=== PATIENT | male | born 1980 | race Caucasian/White ===

== ENCOUNTER 2017-10-17 19:16 | Emergency (ER) | payer OTHER ==
--- NOTE | 2017-10-17 19:55 | ER Document Report ---
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 Using the gearshift made it hurt and it is swollen this morning. No history of gout although he is a history of an elevated uric acid. History of arthritis. No fever or chills. No insect bite or sting. Associated Symptoms: None Exacerbated by: Movement Relieved by: Denies Similar symptoms previously: No Recently seen / treated by doctor: No - ROS ROS below otherwise negative: Yes Systems Reviewed and Negative: Yes All other systems reviewed and negative Past Medical History - General Information source: Patient - Social History Smoking Status: Current Every Day Smoker Frequency of alcohol use: None Drug Abuse: None Lives with: Spouse/Significant other Family History: Reviewed & Not Pertinent - Medical History Medical History: Negative Surgical Hx: Negative Vertical Provider Document - CONSTITUTIONAL Agree With Documented VS: Yes Exam Limitations: No Limitations - INFECTION CONTROL TRAVEL OUTSIDE OF THE [place] IN LAST 30 DAYS: No - HEENT HEENT: Normocephalic - NECK Neck: Supple - MUSCULOSKELETAL/EXTREMETIES Musculoskeletal/Extremeties: MAEW, FROM, Tender, Edema - volar right wrist which is warm, 1 cm oval area that is pinker than the rest of the tissue, no skin lesions in wrist or hand. no pain with finger of wrist ROM Notes: 2+ radial pulse, N/V intact distal to the wrist - NEURO Level of Consciousness: Awake, Alert Motor/Sensory: No Motor Deficit, No Sensory Deficit - DERM Integumentary: Warm, Dry Course - Re-evaluation Re-evalutation: 10/17/17 22:44 final xrays negative. per rad - Vital Signs Vital signs: Temp Pulse Resp BP Pulse Ox 97.8 F 85 20 133/85 H 95 10/17/17 19:25 10/17/17 19:25 10/17/17 19:25 10/17/17 19:25 10/17/17 19:25 Procedures - Immobilization Right Wrist Time completed: 21:50 Pre-Proc Neuro Vasc Exam: Normal Immobilizer type: Angel wrap Performed by: PCT Post-Proc Neuro Vasc Exam: Normal Alignment checked and good: Yes Discharge - Discharge Clinical Impression: Right wrist tendinitis Condition: Good Disposition: HOME, SELF-CARE Instructions: Angel Wrap ([facility]), Anti-Inflammatory Medication ([facility]), Sling to be Used ([facility]), Tendonitis ([facility]) Additional Instructions: Preliminary x-ray is negative Call me tomorrow after 9 AM at [phone] for the final x-ray report Angel wrap for comfort Elevate above your heart Sling Follow-up with your primary care doctor Return to the emergency room if symptoms worsen this weekend Prescriptions: Ibuprofen [Motrin 800 mg Tablet] 800 mg PO Q8HP PRN #30 tablet PRN Reason: Forms: Return to Work Referrals: LINDSEY HERNANDES PA [Primary Care Provider] - Follow up as needed
[2017-10-17] MEDS ORDERED: IBUPROFEN 800 MG TABLET PO ONE (20:18)
[2017-10-17 21:02] VITALS: BP 123/86
--- NOTE | 2017-10-17 21:17 | RADIOLOGY REPORT (SQ) ---
EXAM DESCRIPTION: HAND RIGHT 3 VIEWS; WRIST RIGHT 3 VIEWS COMPLETED DATE/TIME: 10/17/2017 8:30 pm REASON FOR STUDY: pain and swelling COMPARISON: None. FINDINGS: Three views right wrist: No bone, joint or soft tissue abnormality. Normal carpal alignm ent. Three views right hand: Old healed 5th metacarpal fracture with resultant foreshortening and mild an gular deformity. No acute fracture. Soft tissues normal. IMPRESSION: No radiographic evidence of acute abnormality of the right wrist or hand. TECHNICAL DOCUMENTATION: JOB ID: [id number] Reading location - IP/workstation name: [email or web address]
--- NOTE | 2017-10-17 21:17 | RADIOLOGY REPORT (SQ) ---
EXAM DESCRIPTION: HAND RIGHT 3 VIEWS; WRIST RIGHT 3 VIEWS COMPLETED DATE/TIME: 10/17/2017 8:30 pm REASON FOR STUDY: pain and swelling COMPARISON: None. FINDINGS: Three views right wrist: No bone, joint or soft tissue abnormality. Normal carpal alignm ent. Three views right hand: Old healed 5th metacarpal fracture with resultant foreshortening and mild an gular deformity. No acute fracture. Soft tissues normal. IMPRESSION: No radiographic evidence of acute abnormality of the right wrist or hand. TECHNICAL DOCUMENTATION: JOB ID: [id number] Reading location - IP/workstation name: [email or web address]
== END 2017-10-17 20:57 | disposition home or self-care (01) ==
LOC: ER 19:16
DX: M77.9 Enthesopathy, unspecified (principal); M25.531 Pain in right wrist; M25.549 Pain in joints of unspecified hand; F17.200 Nicotine dependence, unspecified, uncomplicated
CPT/HCPCS: 99283

== ENCOUNTER 2017-12-21 22:44 | Emergency (ER) | payer OTHER ==
--- NOTE | 2017-12-22 01:27 | ER Document Report ---
ED Medical Screen (RME) - General Chief Complaint: Weakness Stated Complaint: FATIGUED Time Seen by Provider: 12/22/17 01:24 Mode of Arrival: Ambulatory Information source: Patient Notes: Patient is a 37-year-old male who presents with chief complaint of nausea, shortness of breath and fatigue that started at 8 PM tonight while he was at work. Patient reports he feels very winded with any amount of movement and feels extremely tired. Patient reports that he feels excessively thirsty. Patient reports that he is a borderline diabetic however he has not had any blood sugars done in many years. Patient denies any history of similar symptoms. Denies any pain. Patient's primary care provider is David Melara. Patient reports past medical history of low testosterone, hypertension, constipation, GERD, hyperlipidemia and a right bundle branch block. Exam: Lung sounds clear to auscultation bilaterally. Patient alert, oriented and able to speak in full sentences, ambulates with a steady gait. I have greeted and performed a rapid initial assessment of this patient. A comprehensive ED assessment and evaluation of the patient, analysis of test results and completion of the medical decision making process will be conducted by additional ED providers. Dictation of this chart was performed using voice recognition software; therefore, there may be some unintended grammatical errors. TRAVEL OUTSIDE OF THE [place] IN LAST 30 DAYS: No - Related Data Allergies/Adverse Reactions: No Known Allergies Allergy (Verified 10/17/17 19:16) Past Medical History - Past Medical History Cardiac Medical History: Reports: Hx Hypertension Renal/ Medical History: Denies: Hx Peritoneal Dialysis Physical Exam - Vital signs Vitals: Temp Pulse Resp BP Pulse Ox 98.0 F 72 16 141/79 H 99 12/21/17 22:50 12/21/17 22:50 12/21/17 22:50 12/21/17 22:50 12/21/17 22:50 Course - Vital Signs Vital signs: Temp Pulse Resp BP Pulse Ox 98.0 F 72 16 141/79 H 99 12/21/17 22:50 12/21/17 22:50 12/21/17 22:50 12/21/17 22:50 12/21/17 22:50 Doctor's Discharge - Discharge Referrals: LINDSEY HERNANDES PA [Primary Care Provider] - Follow up as needed
[2017-12-22 02:05] LABS: ABSOLUTE BASOPHILS # (AUTO) 0.1 10^3/uL (0.0-0.2); ABSOLUTE EOSINOPHILS # (AUTO) 0.3 10^3/uL (0.0-0.6); ABSOLUTE LYMPHOCYTES (AUTO) 2.9 10^3/uL (0.5-4.7); ABSOLUTE MONOCYTES (AUTO) 0.9 10^3/uL (0.1-1.4); ABSOLUTE NEUT (AUTO) 7.1 10^3/uL (1.7-8.2); BASOPHILS % (AUTO) 1.1 % (0-2); EOSINOPHILS % (AUTO) 2.4 % (0-6); HEMATOCRIT 43.3 % (37.9-51.0); HEMOGLOBIN 14.6 g/dL (13.5-17.0); LYMPHOCYTES % (AUTO) 25.9 % (13-45); MEAN CORPUSCULAR HEMOGLOBIN 27.7 pg (27.0-33.4); MEAN CORPUSCULAR HGB CONC 33.8 g/dL (32.0-36.0); MEAN CORPUSCULAR VOLUME 82 fl (80-97); MONOCYTES % (AUTO) 7.8 % (3-13); PLATELET COUNT 227 10^3/uL (150-450); RED BLOOD COUNT 5.29 10^6/uL (4.35-5.55); RED CELL DISTRIBUTION WIDTH 14.3 % (11.5-14.0); SEGMENTED NEUTROPHILS % (AUTO) 62.8 % (42-78); TOTAL CELLS COUNTED % (AUTO) 100 %; WHITE BLOOD COUNT 11.3 10^3/uL (4.0-10.5)
[2017-12-22 02:08] LABS: APPEARANCE,URINE CLEAR; BILIRUBIN,URINE NEGATIVE (NEGATIVE); COLOR,URINE YELLOW; GLUCOSE, URINE NEGATIVE (NEGATIVE); KETONES,URINE NEGATIVE (NEGATIVE); LEUKOCYTE ESTERASE,URINE NEGATIVE (NEGATIVE); NITRITE,URINE NEGATIVE (NEGATIVE); PROTEIN,URINE NEGATIVE (NEGATIVE); URINE SPECIFIC GRAVITY 1.021; UROBILINOGEN,URINE NEGATIVE mg/dL (<2.0)
[2017-12-22 02:23] LABS: ALANINE AMINOTRANSFERASE 36 U/L (21-72); ALBUMIN 4.3 g/dL (3.5-5.0); ALKALINE PHOSPHATASE 86 U/L (38-126); ANION GAP 12 (5-19); ASPARTATE AMINO TRANSFERASE 23 U/L (17-59); BILIRUBIN,DIRECT 0.3 mg/dL (0.0-0.4); BILIRUBIN,TOTAL 0.4 mg/dL (0.2-1.3); BLOOD UREA NITROGEN 12 mg/dL (7-20); CALCIUM 9.6 mg/dL (8.4-10.2); CARBON DIOXIDE 27 mmol/L (22-30); CHLORIDE 105 mmol/L (98-107); GLUCOSE 90 mg/dL (75-110); POTASSIUM 4.4 mmol/L (3.6-5.0); SODIUM 144.3 mmol/L (137-145); TOTAL PROTEIN 7.4 g/dL (6.3-8.2)
--- NOTE | 2017-12-22 02:31 | ER Document Report ---
ED General - General Chief Complaint: Weakness Stated Complaint: FATIGUED Time Seen by Provider: 12/22/17 01:24 Mode of Arrival: Ambulatory Notes: Patient is a 37-year-old male who presents with complaint of fatigue. This is been ongoing for last 18 or so hours. He is a clamp truck driver. He does admit that he is in the heat a lot and that his truck's air condition does not work well. Denies any chest pain. He says that when he gets up and walks he does feel a bit short of breath. He says overall just feels very fatigued at times feels little bit dizzy. No headache. No focal weakness or numbness. No abdominal pain. Some nausea but no vomiting. No recent fevers. No recent changes in his medications. He does have a history of left bundle branch block but no history of coronary disease. No history of PE or DVT. TRAVEL OUTSIDE OF THE [place] IN LAST 30 DAYS: No - Related Data Allergies/Adverse Reactions: No Known Allergies Allergy (Verified 10/17/17 19:16) Past Medical History - General Information source: Patient - Social History Smoking Status: Never Smoker Frequency of alcohol use: None Drug Abuse: None Family History: Reviewed & Not Pertinent - Past Medical History Cardiac Medical History: Reports: Hx Hypertension Renal/ Medical History: Denies: Hx Peritoneal Dialysis Review of Systems - Review of Systems Notes: My Normal Review Basic REVIEW OF SYSTEMS: CONSTITUTIONAL : Denies fever, chills, or sweats. Denies recent illness. Fatigue EENT: Denies eye, ear, throat, or mouth pain or symptoms. Denies nasal or sinus congestion. Vascular: No chest pain RESPIRATORY: Some shortness of breath with exertion. GASTROINTESTINAL: Denies abdominal pain. Denies nausea, vomiting, or diarrhea. MUSCULOSKELETAL: Denies neck or back pain or joint pain or swelling. SKIN: Denies rash or skin lesions. NEUROLOGICAL: Denies altered mental status or loss of consciousness. Some dizziness. Denies headache. Denies weakness or paralysis or loss of use of either side. Denies problems with gait or speech. Denies sensory or motor loss. ALL OTHER SYSTEMS REVIEWED AND NEGATIVE. Physical Exam - Vital signs Vitals: Temp Pulse Resp BP Pulse Ox 98.0 F 72 16 141/79 H 99 12/21/17 22:50 12/21/17 22:50 12/21/17 22:50 12/21/17 22:50 12/21/17 22:50 - Notes Notes: General Appearance: Well nourished, alert, cooperative, no acute distress, no obvious discomfort. Vitals: reviewed, See vital signs table. Head: no swelling or tenderness to the head Eyes: PERRL, EOMI, Conjuctiva clear Mouth: No decreasd moisture Throat: No tonsillar inflammation, No airway obstruction, No lymphadenopathy Neck: Supple, no neck tenderness, No thyromegaly Lungs: No wheezing, No rales, No rhonci, No accessory muscle use, good air exchange bilaterally. Heart: Normal rate, Regular rythm, No murmur, no rub Abdomen: Normal BS, soft, No rigidity, No abdominal tenderness, No guarding, no rebound, no abdominal masses, no organomegaly Extremities: strength 5/5 in all extremities, good pulses in all extremities, no swelling or tenderness in the extremities, face bilateral lower extremity edema. Skin: warm, dry, appropriate color, no rash Neuro: speech clear, oriented x 3, normal affect, responds appropriately to questions. Cranial nerves II through XII are intact. Distal sensation intact. Patient will move all 4 extremities without difficulty. Course - Re-evaluation Re-evalutation: 12/22/17 02:31 EKG is reviewed and interpreted by me. EKG shows sinus rhythm with a rate of 59 bpm. Patient has a left bundle branch block with expected ST segment changes. GA interval is prolonged. QRS duration is prolonged. QTc interval is within normal range. No old EKG available for comparison. 12/22/17 06:17 The exact cause of the patient's fatigue is unclear. He is feeling some better after receiving IV fluids. I suspect this most likely is heat exhaustion. D- dimer is negative. Obtain a d-dimer due to his history of being a clamp truck driver and feel a bit short of breath. His troponin is negative. He has no chest pain. His EKG is normal. He looks well on exam. Is no focal neurologic deficits. I feel is safe to be discharged home. I will give him a day off and encouraged him to drink non-caffeinated liquids and the rest. I encouraged him follow-up closely with his primary care doctor this week. I encourage him return to ER if he has worsening of symptoms or has any chest pain. Patient agrees with plan will be discharged home. Dictation of this chart was performed using voice recognition software; therefore, there may be some unintended grammatical errors. - Vital Signs Vital signs: Temp Pulse Resp BP Pulse Ox 98.4 F 69 16 119/71 99 12/22/17 05:28 12/22/17 05:28 12/21/17 22:50 12/22/17 05:28 12/22/17 05:28 - Laboratory Result Diagrams: 12/22/17 01:40 12/22/17 01:40 Laboratory results interpreted by me: 12/22/17 01:40 WBC 11.3 H RDW 14.3 H Discharge - Discharge Clinical Impression: Exertional dyspnea Fatigue Qualifiers: Fatigue type: unspecified Qualified Code(s): R53.83 - Other fatigue Condition: Good Disposition: HOME, SELF-CARE Additional Instructions: Please rest over the next 24 hours and stay in the air conditioning and drink lots of non-caffeinated liquids. Please follow up closely with your doctor this week for reevaluaiton. Return to the ER immediately if you have any chest pain, difficulty breathing, worsening weakness, or feel that you are worsening in any way. Forms: Return to Work Referrals: LINDSEY HERNANDES PA [Primary Care Provider] - Follow up as needed
[2017-12-22] MEDS ORDERED: RINGERS SOLUTION,LACTATED 1,000 ML IV ONE (02:42)
[2017-12-22 03:26] LABS: FREE T4 (FREE THYROXINE) 0.93 ng/dL (0.78-2.19)
[2017-12-22 03:40] LABS: THYROID STIMULATING HORMONE 2.5 uIU/mL (0.47-4.68)
--- NOTE | 2017-12-22 04:23 | RADIOLOGY REPORT (SQ) ---
EXAM DESCRIPTION: XR CHEST 2 VIEWS COMPLETED DATE/TME: 12/22/2017 01:24 CLINICAL HISTORY: 37 years Male, shortness of breath/dyspnea COMPARISON: None. FINDINGS: Adequate lung volume, clear parenchyma, normal cardiac silhouette, and grossly intact bony thorax. IMPRESSION: No acute cardiopulmonary findings.
[2017-12-22 05:38] VITALS: BP 119/71
--- NOTE | 2017-12-22 07:45 | EKG REPORT ---
SEVERITY:- ABNORMAL ECG - SINUS RHYTHM FIRST DEGREE AV BLOCK LEFT BUNDLE BRANCH BLOCK : Confirmed by: Chris Flores MD 22-Dec-2017 07:45:02
== END 2017-12-22 05:33 | disposition home or self-care (01) ==
LOC: ER 22:44
DX: R53.83 Other fatigue (principal); R06.09 Other forms of dyspnea; R06.02 Shortness of breath; R42 Dizziness and giddiness; R11.0 Nausea; I44.7 Left bundle-branch block, unspecified; I10 Essential (primary) hypertension
CPT/HCPCS: 93005; 99285; 96360; 96361; 36415; 84439; 84443; 85025; 80053; 81001; 84484; 85379; 71046; 93010; J7120

== ENCOUNTER → 2018-07-07 | Outpatient (CLI) | payer OTHER ==
--- NOTE | 2018-07-08 09:09 | RADIOLOGY REPORT (SQ) ---
EXAM DESCRIPTION: MRI HEAD COMBO COMPLETED DATE/TIME: 07/07/2018 8:05 pm REASON FOR STUDY: R42 DIZZINESS AND GIDDINESS R56.9 UNSPECIFIED CONVULSIONS R42 DIZZINESS AND GIDDI NESS R56.9 UNSPECIFIED CONVULSIONS COMPARISON: None. TECHNIQUE: Multiplanar imaging includes noncontrasted T1, T2, FLAIR, diffusion with ADC map and post gadolinium contrast T1 sequences. Images stored on PACS. CONTRAST TYPE AND DOSE: 20 mL Dotarem. RENAL FUNCTION: None required. The patient is less than 50 years old. LIMITATIONS: None. FINDINGS: ANATOMY: No anomalies. Normal vascular flow voids. Pituitary fossa normal. CSF SPACES: Normal in size and contour. No hemorrhage. CEREBRUM: Sulci and gyri normal in size and contour. Normal white matter signal on FLAIR imaging. No evidence of hemorrhage, mass, or extraaxial fluid collection. No abnormal enhancement post contrast. POSTERIOR FOSSA: No signal alteration. No hemorrhage. No edema, masses, or mass effect. Internal vivi tory canals, cerebellopontine angles, mastoids normal. No enhancing lesions. No abnormal enhancement post contrast. DIFFUSION IMAGING: Negative for acute or subacute infarction. ORBITS: No masses. Globes normal. PARANASAL SINUSES: No fluid levels. Mucosa normal. OTHER: No other significant finding. IMPRESSION: NORMAL MRI OF THE BRAIN WITHOUT AND WITH INTRAVENOUS GADOLINIUM CONTRAST. EVIDENCE OF ACUTE STROKE: NO. TECHNICAL DOCUMENTATION: JOB ID: [id number] [employer]- All Rights Reserved Reading location - IP/workstation name: [email or web address]
== END ==
LOC: RAD 19:34
PROVIDERS: ATTEND Specialist
DX: R42 Dizziness and giddiness (principal); R56.9 Unspecified convulsions
CPT/HCPCS: 82565; 70553; A9576

== ENCOUNTER → 2018-11-18 | Outpatient (CLI) | payer MEDICAID ==
--- NOTE | 2018-11-18 15:18 | RADIOLOGY REPORT (SQ) ---
EXAM DESCRIPTION: MRI CERVICAL SPINE WITHOUT COMPLETED DATE/TIME: 11/18/2018 2:08 pm REASON FOR STUDY: M54.12 RADICULOPATHY, CERVICAL REGION M54.12 RADICULOPATHY, CERVICAL REGION COMPARISON: None. TECHNIQUE: Sagittal and Axial imaging includes T1, T2, STIR and gradient echo sequences. LIMITATIONS: Large body habitus. Body coil had to be utilized. FINDINGS: ALIGNMENT: There is very slight reversal of the normal cervical lordosis. This could be p ositional. VERTEBRAE: Intact. BONE MARROW: Normal. No marrow replacement or reactive changes. DISCS: There is some loss of normal water signal throughout the cervical spine consistent with desicc ation. This is most prominent from the C2-3 level there is C5-C6. HARDWARE: None in the spine. CORD AND BASE OF BRAIN: Normal in size and signal intensity. SOFT TISSUES: No soft tissue masses. C1-C2: No significant spinal stenosis. C2-C3: No significant spinal stenosis or exit foraminal stenosis. C3-C4: No significant spinal stenosis or exit foraminal stenosis. C4-C5: No significant spinal stenosis or exit foraminal stenosis. C5-C6: No significant spinal stenosis or exit foraminal stenosis. C6-C7: No significant spinal stenosis or exit foraminal stenosis. C7-T1: No significant spinal stenosis or exit foraminal stenosis. UPPER THORACIC: Incompletely imaged. No significant spinal stenosis or exit foraminal stenosis. OTHER: No other significant finding. IMPRESSION: Mild disc degenerative disease with loss of normal water signal as described. No high-g rade central stenosis or nerve root impingement. TECHNICAL DOCUMENTATION: JOB ID: [id number] [employer]- All Rights Reserved Reading location - IP/workstation name: [email or web address]
== END ==
LOC: RAD 13:19
PROVIDERS: ATTEND Family Medicine
DX: M54.12 Radiculopathy, cervical region (principal); M50.322 Other cervical disc degeneration at C5-C6 level
CPT/HCPCS: 72141

== ENCOUNTER → 2019-02-25 | Outpatient (CLI) | payer MEDICAID ==
--- NOTE | 2019-02-25 16:51 | RADIOLOGY REPORT (SQ) ---
EXAM DESCRIPTION: MRI LUMBAR SPINE WITHOUT COMPLETED DATE/TIME: 02/25/2019 4:42 pm REASON FOR STUDY: M54.5 LOW BACK PAIN M54.5 LOW BACK PAIN COMPARISON: None. TECHNIQUE: Sagittal and Axial imaging includes T1, T2, STIR and gradient echo sequences. Coronal T2/ HASTE imaging. LIMITATIONS: None. FINDINGS: VISUALIZED UPPER ABDOMEN: Limited evaluation. No acute or suspicious findings suggested. SEGMENTATION: No transitional anatomy. The lowest well-developed disc space is labeled L5-S1. ALIGNMENT: Anatomic. VERTEBRAE: Intact. BONE MARROW: Normal. No marrow replacement or reactive changes. DISC SIGNAL: Normal. No significant abnormal signal or loss of height. POSTERIOR ELEMENTS: Generally intact. No pars defect evident. HARDWARE: None in the spine. CORD AND CONUS: Normal in size and signal intensity. Conus at the appropriate level. SOFT TISSUES: No aortic aneurysm seen. No bulky retroperitoneal adenopathy or mass. No paraspinal mas s or fluid. L1-L2: No significant spinal stenosis or exit foraminal stenosis. L2-L3: No significant spinal stenosis or exit foraminal stenosis. L3-L4: No significant spinal stenosis or exit foraminal stenosis. L4-L5: No significant spinal stenosis or exit foraminal stenosis. L5-S1: Small focal area of increased signal in the posterior annulus. No disc bulge. No significant spinal stenosis or exit foraminal stenosis. LOWER THORACIC: Incompletely imaged. No stenosis seen. SACRUM: Visualized upper sacrum intact. OTHER: No other significant findings. IMPRESSION: SMALL FOCAL AREA OF INCREASED SIGNAL IN THE POSTERIOR ANNULUS OF THE L5-S1 DISC, PROBABL Y A SMALL ANNULAR FISSURE. OTHERWISE UNREMARKABLE MRI LUMBAR SPINE. NO DISC BULGE, STENOSIS, OR IMP INGEMENT. TECHNICAL DOCUMENTATION: JOB ID: [id number]- All Rights Reserved Reading location - IP/workstation name: [email or web address]-
== END ==
LOC: RAD 15:56
PROVIDERS: ATTEND Anesthesiology Pain Medicine
DX: M54.5 Low back pain (principal)
CPT/HCPCS: 72148

== ENCOUNTER 2019-05-01 16:42 | Emergency (ER) | payer MEDICAID ==
[2019-05-01] MEDS ORDERED: ASPIRIN 81 MG TABLET, CHEWABLE PO ONE (17:22)
[2019-05-01] MEDS ORDERED: IPRATROPIUM/ALBUTEROL 0.5-2.5 MG/3 ML AMPUL NEB ONE (17:23)
--- NOTE | 2019-05-01 17:24 | ER Document Report ---
ED Medical Screen (RME) - General Chief Complaint: Shortness Of Breath Stated Complaint: SHORTNESS OF BREATH/COUGH/CHEST TIGHTNESS Time Seen by Provider: 05/01/19 17:09 Primary Care Provider: HELIO ODONNELL MD [Primary Care Provider] - Follow up as needed Notes: Patient presents complaint of cough for the past month with sore throat and headache. Patient denies any nausea. Patient is here with family members with upper respiratory symptoms. Patient states he developed chest pain and shortness of breath today which prompted his visit. I have greeted and performed a rapid initial assessment of this patient. A comprehensive ED assessment and evaluation of the patient, analysis of test results and completion of the medical decision making process will be conducted by additional ED providers. TRAVEL OUTSIDE OF THE [place] IN LAST 30 DAYS: No - Related Data Allergies/Adverse Reactions: No Known Allergies Allergy (Verified 10/17/17 19:16) Home Medications: asa. atoravistatin. stool softener. losartin. claritin. hydrochlorothizide. protonix. vit d Past Medical History - Social History Chew tobacco use (# tins/day): No Frequency of alcohol use: Occasional Drug Abuse: None - Past Medical History Cardiac Medical History: Reports: Hx Hypercholesterolemia, Hx Hypertension Renal/ Medical History: Denies: Hx Peritoneal Dialysis Past Surgical History: Reports: Hx Appendectomy, Hx Tonsillectomy Physical Exam - Vital signs Vitals: Temp Resp Pulse Ox 98.3 F 20 96 05/01/19 16:42 05/01/19 16:42 05/01/19 16:42 - Respiratory Respiratory status: No respiratory distress Chest status: Tender, Pain with cough Breath sounds: Nonproductive cough Course - Vital Signs Vital signs: Temp Pulse Resp BP Pulse Ox 98.3 F 84 20 133/61 H 96 05/01/19 16:48 05/01/19 16:48 05/01/19 16:48 05/01/19 16:48 05/01/19 16:48 Doctor's Discharge - Discharge Referrals: HELIO ODONNELL MD [Primary Care Provider] - Follow up as needed
--- NOTE | 2019-05-01 17:38 | ER Document Report ---
ED General - General Chief Complaint: Shortness Of Breath Stated Complaint: SHORTNESS OF BREATH/COUGH/CHEST TIGHTNESS Time Seen by Provider: 05/01/19 17:09 Primary Care Provider: HELIO ODONNELL MD [NO LOCAL MD] - Follow up as needed TRAVEL OUTSIDE OF THE [place] IN LAST 30 DAYS: No - HPI Notes: 38-year-old male to the emergency department with complaints of shortness of breath, cough, chest pain. He has had a cough for the past 4 weeks. He also states that he began to develop a sore throat over the past several days. He states that he is beginning to feel like he is short of breath when he coughs and he has a lot of tightness across the anterior portion of his chest. He denies any leg swelling, exertional chest pain, nausea, vomiting, diaphoresis. He does have a history of high blood pressure but he is not diabetic. He denies any history of hyperlipidemia. He is not a smoker. There is no known history of coronary artery disease in his family. He states that his chest hurts more with coughing and big deep breath. - Related Data Allergies/Adverse Reactions: No Known Allergies Allergy (Verified 10/17/17 19:16) Home Medications: asa. atoravistatin. stool softener. losartin. claritin. hydrochlorothizide. protonix. vit d Past Medical History - General Information source: Patient - Social History Smoking Status: Former Smoker Chew tobacco use (# tins/day): No Frequency of alcohol use: Occasional Drug Abuse: None Lives with: Family Family History: Reviewed & Not Pertinent Patient has suicidal ideation: No Patient has homicidal ideation: No - Past Medical History Cardiac Medical History: Reports: Hx Hypercholesterolemia, Hx Hypertension Renal/ Medical History: Denies: Hx Peritoneal Dialysis Past Surgical History: Reports: Hx Appendectomy, Hx Tonsillectomy Review of Systems - Review of Systems Constitutional: Chills, Fever - Subjective fevers EENT: Throat pain Cardiovascular: See HPI, Chest pain. denies: Palpitations, Heart racing, Syncope, Dizziness, Lightheaded Respiratory: Cough, Short of breath Gastrointestinal: denies: Abdominal pain, Diarrhea, Nausea, Vomiting Genitourinary: No symptoms reported Male Genitourinary: No symptoms reported Musculoskeletal: No symptoms reported Skin: No symptoms reported Hematologic/Lymphatic: No symptoms reported Neurological/Psychological: No symptoms reported -: Yes All other systems reviewed and negative Physical Exam - Vital signs Vitals: Temp Resp Pulse Ox 98.3 F 20 96 05/01/19 16:42 05/01/19 16:42 05/01/19 16:42 Selected Entries 05/01/19 16:48 Temperature 98.3 F Pulse Rate 84 Respiratory 20 Rate Blood Pressure 133/61 H Blood Pressure 85 Mean O2 Sat by Pulse 96 Oximetry Interpretation: Normal - General General appearance: Appears well, Alert In distress: None - HEENT Head: Normocephalic, Atraumatic Eyes: Normal Pupils: PERRL Ears: Normal External canal: Normal Tympanic membrane: Normal Sinus: Normal Nasal: Normal Mouth/Lips: Normal Pharynx: Normal. No: Potential airway comprom. Neck: Normal, Supple. No: Lymphadenopathy, Meningismus - Respiratory Respiratory status: No respiratory distress Chest status: Nontender Breath sounds: Decreased air movement. No: Productive cough, Rales, Rhonchi, Stridor, Wheezing Chest palpation: Normal - Cardiovascular Rhythm: Regular Heart sounds: Normal auscultation Murmur: No - Abdominal Inspection: Morbidly Obese Distension: No distension Bowel sounds: Normal Tenderness: No: Tender, McBurney's point, Winston's sign, Guarding, Rebound Organomegaly: No organomegaly - Back Back: Normal, Nontender. No: CVA tenderness - Neurological Neuro grossly intact: Yes Cognition: Normal Orientation: AAOx4 Nikky Coma Scale Eye Opening: Spontaneous Nikky Coma Scale Verbal: Oriented Nikky Coma Scale Motor: Obeys Commands Nikky Coma Scale Total: 15 Speech: Normal Cranial nerves: Normal Cerebellar coordination: Normal Motor strength normal: LUE, RUE, LLE, RLE Additional motor exam normals: Equal fresh food manager. No: Pronator drift Sensory: Normal - Psychological Associated symptoms: Normal affect, Normal mood - Skin Skin Temperature: Warm Skin Moisture: Dry Skin Color: Normal Course - Re-evaluation Re-evalutation: 05/01/19 19:23 Patient feeling much better after breathing treatment. States "I am feeling much more like my old self". Offered second breathing treatment, but patient declined. Likely this is a bronchitis that is lingering. Will send home with tessalon, albuterol inhaler, and steroid dose dillon. Patient agrees with the plan. Impression: Bronchitis. CXR negative for PNA. Labs are reassuring. EKG unchanged from prior. Has musculoskeletal chest pain from coughing. Will discharge home. Patient agrees with the plan. - Vital Signs Vital signs: Temp Pulse Resp BP Pulse Ox 98.3 F 84 18 146/88 H 96 05/01/19 16:48 05/01/19 16:48 05/01/19 18:14 05/01/19 18:14 05/01/19 18:14 - Laboratory Result Diagrams: 05/01/19 17:54 05/01/19 17:54 Laboratory results interpreted by me: 05/01/19 17:54 RDW 14.2 H - Diagnostic Test Radiology reviewed: Image reviewed, Reports reviewed - EKG Interpretation by Me EKG shows normal: Sinus rhythm Rate: Normal Whitney/QRS: LBBB When compared to previous EKG there are: No significant change Additional EKG results interpreted by me: 05/01/19 19:27 NO STEMI, + LBBB that is unchanged from prior on 12/22/2017. Discharge - Discharge Clinical Impression: Bronchitis, Musculoskeletal chest pain Condition: Stable Disposition: HOME, SELF-CARE Instructions: Bronchitis ([facility]), Chest Wall Pain ([facility]) Additional Instructions: PUSH FLUIDS. TAKE MEDICINES PRESCRIBED. RETURN IF WORSE. Prescriptions: Benzonatate [Tessalon Perle 100 mg Capsule] 100 mg PO Q8HP PRN #40 cap PRN Reason: Albuterol Sulfate [Albuterol Sulfate Hfa] 2 puff IH Q4H #1 hfa.aer.ad Prednisone [Deltasone 10 mg Tablet] 10 mg PO ASDIR PRN #21 tablet PRN Reason: Referrals: HELIO ODONNELL MD [NO LOCAL MD] - Follow up in 3-5 days
[2019-05-01 18:16] LABS: ABSOLUTE BASOPHILS # (AUTO) 0.1 10^3/uL (0.0-0.2); ABSOLUTE EOSINOPHILS # (AUTO) 0.3 10^3/uL (0.0-0.6); ABSOLUTE LYMPHOCYTES (AUTO) 1.9 10^3/uL (0.5-4.7); ABSOLUTE MONOCYTES (AUTO) 0.8 10^3/uL (0.1-1.4); BASOPHILS % (AUTO) 0.9 % (0-2); EOSINOPHILS % (AUTO) 2.8 % (0-6); HEMATOCRIT 43.5 % (37.9-51.0); HEMOGLOBIN 14.8 g/dL (13.5-17.0); LYMPHOCYTES % (AUTO) 18.8 % (13-45); MEAN CORPUSCULAR HEMOGLOBIN 27.6 pg (27.0-33.4); MEAN CORPUSCULAR HGB CONC 34.1 g/dL (32.0-36.0); MEAN CORPUSCULAR VOLUME 81 fl (80-97); PLATELET COUNT 222 10^3/uL (150-450); RED BLOOD COUNT 5.37 10^6/uL (4.35-5.55); RED CELL DISTRIBUTION WIDTH 14.2 % (11.5-14.0); SEGMENTED NEUTROPHILS % (AUTO) 69.5 % (42-78); TOTAL CELLS COUNTED % (AUTO) 100 %; WHITE BLOOD COUNT 10.1 10^3/uL (4.0-10.5)
[2019-05-01 18:31] LABS: ALBUMIN 4.4 g/dL (3.5-5.0); ALKALINE PHOSPHATASE 96 U/L (38-126); ANION GAP 13 (5-19); ASPARTATE AMINO TRANSFERASE 31 U/L (17-59); BILIRUBIN,DIRECT 0.2 mg/dL (0.0-0.4); BILIRUBIN,TOTAL 0.4 mg/dL (0.2-1.3); BLOOD UREA NITROGEN 10 mg/dL (7-20); CALCIUM 9.8 mg/dL (8.4-10.2); CARBON DIOXIDE 28 mmol/L (22-30); CHLORIDE 100 mmol/L (98-107); GLUCOSE 93 mg/dL (75-110); POTASSIUM 4.2 mmol/L (3.6-5.0)
--- NOTE | 2019-05-01 18:39 | RADIOLOGY REPORT (SQ) ---
EXAM DESCRIPTION: CHEST 2 VIEWS COMPLETED DATE/TIME: 05/01/2019 6:27 pm REASON FOR STUDY: cough COMPARISON: 12/22/2017 TECHNIQUE: Frontal and lateral radiographic views of the chest acquired. NUMBER OF VIEWS: Two view. LIMITATIONS: None. FINDINGS: LUNGS AND PLEURA: No pneumothorax. No consolidation or pleural effusion. MEDIASTINUM AND HILAR STRUCTURES: Stable. HEART AND VASCULAR STRUCTURES: Stable. BONES: No acute findings. HARDWARE: None in the chest. OTHER: No other significant finding. IMPRESSION: NO ACUTE FINDINGS. TECHNICAL DOCUMENTATION: JOB ID: [id number] [id number] 2010 [employer]- All Rights Reserved Reading location - IP/workstation name: [email or web address]
[2019-05-01] MEDS ORDERED: PREDNISONE 20 MG TABLET PO ONE (18:57)
[2019-05-01 19:39] VITALS: BP 155/85
--- NOTE | 2019-05-01 20:06 | EKG REPORT ---
SEVERITY:- ABNORMAL ECG - SINUS RHYTHM LEFT BUNDLE BRANCH BLOCK : Confirmed by: Lux Storm 01-May-2019 20:05:52
== END 2019-05-01 19:39 | disposition home or self-care (01) ==
LOC: ER 16:42
DX: J40 Bronchitis, not specified as acute or chronic (principal); R07.89 Other chest pain; R06.02 Shortness of breath; R07.9 Chest pain, unspecified; E66.01 Morbid (severe) obesity due to excess calories; E78.00 Pure hypercholesterolemia, unspecified; I10 Essential (primary) hypertension
CPT/HCPCS: 93005; 94640; 99283; 36415; 87070; 87880; 85025; 80053; 84484; 71046; 93010; J7512; J7620